=== PATIENT | female | born 1970 | race African-American/Black ===

== ENCOUNTER 2018-03-09 07:57 | Day surgery (SDC) | payer OTHER ==
[2018-03-08 11:12] VITALS: BMI 26.1
[2018-03-09 08:30] VITALS: BP 117/66; PULSE 64; TEMP 98.6
[2018-03-09] MEDS ORDERED: BUPIVACAINE HCL/PF 0.5% (5MG/ML) 10 ML VIAL ONE (09:22)
[2018-03-09] MEDS ORDERED: LIDOCAINE 1%/EPI 1:100000 (20 ML MULTI DOSE VIAL) ONE (09:22)
== END 2018-03-09 10:27 | disposition home or self-care (01) ==
LOC: JASU-SURG 07:57
PROVIDERS: ATTEND Podiatrist Foot Surgery
PROC: 3E013GC Introduction of Other Therapeutic Substance into Subcutaneous Tissue, Percutaneous Approach (ICD-10-PCS; principal; 2018-03-09)
DX: Z53.8 Procedure and treatment not carried out for other reasons (principal)
CPT/HCPCS: 84703